=== PATIENT | female | born 1950 | race African-American/Black ===

== ENCOUNTER 2017-08-04 13:44 | Outpatient (CLI) | payer MEDICARE, OTHER ==
--- NOTE | 2017-08-04 14:13 | RAD ---
RIGHT HAND THREE VIEWS: History: Pain. Comparison: None. FINDINGS: No acute fracture or malalignment. Soft tissues are mildly edematous. Calcification triangular fibrocartilage. 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 IMPRESSION: Mild degenerative changes. POS: [facility]
== END 2017-08-04 13:45 | disposition home or self-care (01) ==
LOC: RAD-FRANK 13:44
PROVIDERS: ATTEND Internal Medicine
DX: M79.641 Pain in right hand (principal); M19.041 Primary osteoarthritis, right hand

== ENCOUNTER 2018-02-09 11:52 | Outpatient (CLI) | payer MEDICARE, OTHER | END 2018-02-09 11:53 | disposition home or self-care (01) | LOC: BICMAMMO 11:52 | PROVIDERS: ATTEND Internal Medicine | DX: Z12.31 Encounter for screening mammogram for malignant neoplasm of breast (principal); R92.1 Mammographic calcification found on diagnostic imaging of breast; Z80.3 Family history of malignant neoplasm of breast | CPT/HCPCS: 77063; 77067 ==

== ENCOUNTER 2019-04-12 14:28 | Outpatient (CLI) | payer MEDICARE, OTHER ==
--- NOTE | 2019-04-12 17:16 | MMO ---
Bilateral MAMMO Bilat Screen [facility]. CLINICAL HISTORY: Patient is 68 years old and is seen for screening. The patient has the following family history of breast cancer: sister. The patient has no personal history of cancer. VIEWS: The views performed were: bilateral craniocaudal; bilateral craniocaudal with tomosynthesis; bilateral mediolateral oblique; and bilateral mediolateral oblique with tomosynthesis. FILMS COMPARED: The present examination has been compared to prior imaging studies performed at [facility] on 05/24/2014, 08/31/2015, 12/09/2016 and 02/09/2018. This study has been interpreted with the assistance of computer-aided detection. MAMMOGRAM FINDINGS: There are scattered fibroglandular densities. There are no suspicious masses, suspicious calcifications, or new areas of architectural distortion. IMPRESSION: THERE IS NO MAMMOGRAPHIC EVIDENCE OF MALIGNANCY. A ROUTINE FOLLOW-UP MAMMOGRAM IN 1 YEAR IS RECOMMENDED. THE RESULTS OF THIS EXAM WERE SENT TO THE PATIENT. ACR BI-RADS Category 1 - Negative MAMMOGRAPHY NOTE: 1. A negative mammogram report should not delay a biopsy if a dominant of clinically suspicious mass is present. 2. Approximately 10% to 15% of breast cancers are not detected by mammography. 3. Adenosis and dense breasts may obscure an underlying neoplasm. Reported by: RICHARD GRAY MD Electonically Signed: [id number]
== END 2019-04-12 14:29 | disposition home or self-care (01) ==
LOC: BICMAMMO 14:28
PROVIDERS: ATTEND Internal Medicine
DX: Z12.31 Encounter for screening mammogram for malignant neoplasm of breast (principal); Z80.3 Family history of malignant neoplasm of breast
CPT/HCPCS: 77063; 77067